=== PATIENT | female | born 1995 | race African-American/Black ===

== ENCOUNTER 2018-06-20 12:26 | Emergency (ER) | payer SELFPAY ==
[~2018-06-20] VITALS: Ht 154.9 cm; Wt 59.0 kg
--- NOTE | 2018-06-20 12:37 | NUR ---
PT BIBSELF FOR BLE PAIN; PT AAOX4, PT AMBULATORY, VSS, NAD NOTED, PENDING MD ALVARADO
--- NOTE | 2018-06-20 15:02 | NUR ---
[employer] CAME AND INTERVIEWED THE PATIENT. OFFICER GERARD. Addendum: 06/20/18 at 1540 by ROALCANCES ID# [id number], OFFICER AMAURY [id number] & OFFICER NEEL [id number].
[2018-06-20] MEDS ORDERED: ACETAMINOPHEN 650 MG/20.3 ML UDC PO ONE (15:30)
[2018-06-20] MEDS ORDERED: TRAMADOL HCL 50 MG TABLET PO ONE (15:30)
[2018-06-20] MEDS ORDERED: TRAMADOL HCL 50 MG TABLET ONE (15:49)
[2018-06-20] MEDS ORDERED: ACETAMINOPHEN 325 MG TABLET ONE (15:49)
[2018-06-20] MEDS ORDERED: DULOXETINE HCL 30 MG CAPSULE.DR ONE (16:52)
[2018-06-20] MEDS ORDERED: GABAPENTIN 300 MG CAPSULE ONE (16:52)
[2018-06-20 17:00] VITALS: BP 124/77
[2018-06-20] MEDS ORDERED: DULOXETINE HCL 30 MG CAPSULE.DR PO ONE (17:00)
[2018-06-20] MEDS ORDERED: GABAPENTIN 100 MG CAPSULE PO ONE (17:00)
--- NOTE | 2018-06-20 17:30 | NUR ---
Patient given written and verbal discharge instructions. Patient verbalizes understanding of instructions. Patient is ambulatory with steady gait. Refuses offer of prison placement. Patient given list of available shelters in surrounding area.
[2018-06-20] MEDS ORDERED: AMITRIPTYLINE HCL 10 MG TABLET PO SCH (22:00)
== END 2018-06-20 17:30 | disposition home or self-care (01) ==
LOC: ER 12:28
DX: G89.29 Other chronic pain (principal); M79.605 Pain in left leg; M79.604 Pain in right leg; M79.7 Fibromyalgia; J45.909 Unspecified asthma, uncomplicated; D64.9 Anemia, unspecified; F12.90 Cannabis use, unspecified, uncomplicated; Z59.0 Homelessness